=== PATIENT | male | born 1990 | race Two or more races ===

== ENCOUNTER 2017-07-03 20:06 | Emergency (ER) | payer OTHER ==
[2017-07-03 20:12] VITALS: BP 121/82
[2017-07-03] MEDS ORDERED: PROPARACAINE 0.5% 15 ML OPHT DROP ONE (20:26)
[2017-07-03] MEDS ORDERED: PROPARACAINE 0.5% 15 ML OPHT DROP OP ONE (20:31)
--- NOTE | 2017-07-03 20:31 | EDPHY ---
H & P Stated Complaint: 1130: POSSIBLE METAL PIECE IN EYE, STARTED PAIN 5PM Source: Patient Exam Limitations: No limitations - Personal History Current Tetanus/Diphtheria Vaccine: Unsure - Medical/Surgical History Hx Asthma: No Hx Chronic Respiratory Disease: No Hx Diabetes: No Hx Cardiac Disease: No Hx Renal Disease: No Hx Cirrhosis: No Hx Alcoholism: No Hx HIV/AIDS: No Hx Splenectomy or Spleen Trauma: No Other PMH: DENIES - Social History Smoking Status: Current every day smoker Time Seen by Provider: 07/03/17 20:30 HPI/ROS: HPI: This is a 26-year-old male who presents with Chief Complaint: 1130: POSSIBLE METAL PIECE IN EYE, STARTED PAIN 5PM Location: Right eye Quality: Pain Duration: 3 hr prior to arrival Signs and Symptoms: no fever, no nausea, no vomiting, no photophobia, no noise sensitivity, no neck stiffness, no ear pain, no tinnitus, no nasal congestion, no sinus pressure, no weakness, no radiation, no aura Timing: Acute Severity: Moderate Context: Patient presents with complaints of believing he has a foreign body stuck in his right eye at the 3 o'clock position. He was at work today using a drill to stay screw a metal bit into a piece of metal. He was wearing safety goggles. He was also working around dry while in did not know if he had any particles that flew into his eye. He rinsed his eye copiously with irrigation. Upon returning home this evening he noticed a small black spot on the corner of his eye accompanied by eye irritation. Denies any visual floaters/headache/ eye pain. Does not wear contact lenses. Unsure of tetanus status. Modifying Factors: Irrigation Comment: ROS: see HPI Constitutional: No fever, no chills, no weight loss Eyes: No blurred vision Respiratory: No shortness of breath, no cough Cardiovascular: No chest pain, no palpitations Gastrointestinal: No nausea, no vomiting, no diarrhea, no hematemesis, no blood in stool Genitourinary: No dysuria, no blood in urine Extremities: No myalgias, no edema Neurologic: No weakness, no numbness Skin: No rashes, no petechiae Hematologic: No bruising, no bleeding MEDICAL/SURGICAL/SOCIAL HISTORY: Medical history: Generally healthy. Does not take any regular medications. Surgical history: Denies Social history: Employed. General appearance: Visual Acuity: noted from Nurse's notes. Pupils: equal round and reactive to light. EOMI. Lids: no edema or swelling Skin: no proptosis, no periorbital erythema or swelling, no vesicles Conjunctivae: not injected, no discharge; small black speck foreign body noted at 3:00 position Cornea: exam with fluorescein shows mild corneal abrasion at 3 o'clock portion Anterior chamber: normal, no hyphema or hypopyon (Cindi Contreras) Constitutional: Initial Vital Signs Temperature (C) 36.5 C 07/03/17 20:09 Heart Rate 80 07/03/17 20:09 Respiratory Rate 18 07/03/17 20:09 Blood Pressure 121/82 H 07/03/17 20:09 O2 Sat (%) 98 07/03/17 20:09 O2 Delivery Mode Room Air Allergies/Adverse Reactions: No Known Allergies Allergy (Unverified 07/03/17 20:08) Home Medications: Medication Instructions Recorded NK [No Known Home Meds] 07/03/17 Medical Decision Making Procedures: Procedure: Foreign body removal from cornea: Anesthesia: Topical. After verbal consent from the patient, an embedded foreign body was removed from the cornea of the right eye at the 3 o'clock position. The foreign body was removed manually using a needle using direct visualization. Following removal there was no significant rust ring. There were no complications and the patient tolerated the procedure well. The procedure was performed by myself. (Cindi Contreras) ED Course/Re-evaluation: Visual acuity is right eye 20/40, left 20/30, both 20/20 Small speck of a foreign body removed from 3:00 position after topical anesthesia; no rust ring seen. Tobramycin drops given with Ophthalmology follow-up. Tetanus booster given. This patient was seen under the supervision of my secondary supervising physician. I evaluated care for this patient independently. Discussed this patient with Dr. Moya who did not see the patient. (Cindi Contreras) The patient was evaluated and managed by the physician state tested nursing assistant. I have reviewed this chart and I agree with the findings and plan of care as documented , as indicated by my signature. I am the secondary supervising physician. ( Mary Moya) Differential Diagnosis: Differential diagnosis includes but is not limited to foreign body, resting, conjunctivitis, corneal abrasion. (Cindi Contreras) - Data Points Medications Given: Discontinued Medications Diphtheria/Tetanus/Acell Pertussis (Boostrix) 0.5 ml IM .ONCE ONE Stop: 07/03/17 20:53 Last Admin: 07/03/17 21:10 Dose: 0.5 ml Proparacaine HCl (Alcaine 0.5%) 1 drops OP EDNOW ONE Stop: 07/03/17 20:32 Last Admin: 07/03/17 20:30 Dose: 1 drop Tobramycin (Tobrex 0.3% Opht Drops Prepack) 1 btl TAKEHOME EDNOW ONE Stop: 07/03/17 20:46 Last Admin: 07/03/17 21:07 Dose: 1 btl Departure - Departure Disposition: Home, Routine, Self-Care Clinical Impression: Foreign body of right eye Qualifiers: Encounter type: initial encounter Qualified Code(s): T15.91XA - Foreign body on external eye, part unspecified, right eye, initial encounter Condition: Good Instructions: Tobramycin (Into the eye), Eye Foreign Body (ED) Additional Instructions: Use Tobramycin eyedrops; 1-2 drops right eye every 4 hr while awake x 5 days. Use Saline eyedrops for lubrication as needed. Take Tylenol 650 mg every 4 hr and/or ibuprofen 600 mg every 8 hr as needed for pain. Follow up with Ophthalmology in 1-2 days for examination. Avoid rubbing or scratching your eye. Eye Complaint: Return to the Emergency Department for any increase in eye pain, redness, swelling, discharge or any worsening of your vision. Referrals: Orlando Monroe MD [Medical Doctor] - 1-2 days without fail Stand Alone Forms: Work Comp Follow Up
[2017-07-03] MEDS ORDERED: TOBRAMYCIN 0.3% SOLN PREPACK OPHT.BTL TAKEHOME ONE (20:45)
[2017-07-03] MEDS ORDERED: TDAP ADULT 0.5 ML INJ (BOOSTRIX) IM ONE (20:52)
== END 2017-07-03 21:17 | disposition home or self-care (01) ==
PROC: 08C8XZZ Extirpation of Matter from Right Cornea, External Approach (ICD-10-PCS; principal; 2017-07-03)
DX: T15.01XA Foreign body in cornea, right eye, initial encounter (principal); F17.200 Nicotine dependence, unspecified, uncomplicated; Z23 Encounter for immunization; X58.XXXA Exposure to other specified factors, initial encounter; Y92.69 Other specified industrial and construction area as the place of occurrence of the external cause; Y99.0 Civilian activity done for income or pay; Y93.89 Activity, other specified